=== PATIENT | female | born 1985 | race Caucasian/White ===

== ENCOUNTER 2017-03-04 19:55 | Emergency (ER) | payer MEDICARE ==
[2011-11-17 05:11] VITALS: BMI 52.1
== END 2017-03-04 20:57 | disposition home or self-care (01) ==
LOC: D.ER 19:55
DX: M25.562 Pain in left knee (principal); F17.200 Nicotine dependence, unspecified, uncomplicated

== ENCOUNTER 2017-06-26 21:50 | Emergency (ER) | payer MEDICARE | END 2017-06-27 00:08 | disposition home or self-care (01) | LOC: D.ER 21:50 | DX: R10.9 Unspecified abdominal pain (principal); F17.200 Nicotine dependence, unspecified, uncomplicated ==

== ENCOUNTER 2017-10-20 09:24 | Emergency (ER) | payer MEDICARE ==
[~2017-10-20] VITALS: Ht 165.1 cm; Wt 136.4 kg
[2017-10-20 09:27] VITALS: Ht 165.1 cm; Wt 136.4 kg
[2017-10-20] MEDS ORDERED: HYDROCODON-ACE1 EAC7 PO (10:00)
[2017-10-20 10:07] VITALS: BP 130/67
== END 2017-10-20 10:08 | disposition home or self-care (01) ==
LOC: D.ER 09:24
DX: S60.032A Contusion of left middle finger without damage to nail, initial encounter (principal); W23.0XXA Caught, crushed, jammed, or pinched between moving objects, initial encounter; Y93.89 Activity, other specified; Y92.019 Unspecified place in single-family (private) house as the place of occurrence of the external cause; F17.200 Nicotine dependence, unspecified, uncomplicated

== ENCOUNTER 2020-10-05 11:57 | Inpatient (IN) | payer MEDICARE, MEDICAID ==
[~2020-10-05] VITALS: Ht 165.1 cm; Wt 150.2 kg
[~2020-10-05 11:57] MED LIST: HYDROCODON-ACE1 EAC7 PO
[2020-10-05 12:39] LABS: BASOPHILS 0.7 % (0-2); EOSINOPHILS 1.4 % (0-7); HEMATOCRIT 47.7 % (36.0-48.0); HEMOGLOBIN 15.7 g/dL (12-16); LYMPHOCYTES 19.4 % (15-50); MCH 28.4 pg (26.0-34.0); MCHC 32.9 g/dL (31.0-37.0); MCV 86.1 fL (80.0-100.0); MONOCYTES 5.8 % (2-11); NEUTROPHILS 72.7 % (40-80); PLATELET COUNT 244 10x3/uL (130-400); RBC 5.53 10x6/uL (4.00-5.40); RDW 14.1 % (11.5-14.5); WBC 16.5 10x3/uL (4.8-10.8)
[2020-10-05 12:53] LABS: CALC OSMOLALITY 269 mosm/kg (275-300); CALCIUM 9.4 mg/dL (8.5-10.1); CARBON DIOXIDE 26.2 mmol/L (21.0-32.0); CHLORIDE - SERUM 102 mmol/L (98-107); CREATININE - SERUM 0.7 mg/dL (0.6-1.3); GLUCOSE 94 mg/dL (74-106); POTASSIUM - SERUM 4.1 mmol/L (3.5-5.1); SODIUM 136 mmol/L (136-145); UREA NITROGEN 8 mg/dL (7-18); eGFR NON AFRICAN AMERICAN > 90 mL/min (90-120)
[2020-10-05 13:01] LABS: BILIRUBIN NEGATIVE (NEGATIVE); KETONE NEGATIVE (NEGATIVE); NITRITE NEGATIVE (NEGATIVE); UROBILINOGEN NORMAL mg/dL (< 2)
[2020-10-05 13:02] LABS: ALBUMIN 3.4 g/dL (3.4-5.0); ALKALINE PHOSPHATASE 113 U/L (30-120); ALT (SGPT) 46 U/L (10-68); AMYLASE - SERUM 26 U/L (25-115); BILIRUBIN - TOTAL 0.24 mg/dL (0.2-1.3); LIPASE 51 U/L (73-393); PROTEIN - SERUM 8.1 g/dL (6.4-8.2); TROPONIN-I < 0.017 ng/mL (0.000-0.060)
[2020-10-05 13:02] LABS: BACTERIA FEW HPF (NONE SEEN); SQUAMOUS EPITHELIAL 0-5 HPF (0-4); WHITE CELLS - URINE NONE SEEN HPF (0-4)
[2020-10-05 13:38] VITALS: BP 138/86
[2020-10-05 15:24] LABS: PROTIME 13.4 SECONDS (11.6-15.0)
[2020-10-05 15:25] LABS: APTT 31.8 SECONDS (22.8-39.4); INR 1.13 (0.85-1.17)
--- NOTE | 2020-10-05 19:50 | NUR ---
BS 71. DR LEZAMA CONTACTED FOR ORDERS. / AMP D50 GIVEN.
--- NOTE | 2020-10-05 20:00 | NUR ---
TO OR VIA STRETCHER
--- NOTE | 2020-10-05 20:00 | NUR ---
DR LEZAMA CALLED. SURGERY CONSENTS OBTAINED FROM PATIENT
--- NOTE | 2020-10-05 22:40 | NUR ---
OPA OUT AT THIS TIME. PT IS A&OX4, VSS
[2020-10-05 23:00] VITALS: BP 113/92
[2020-10-05 23:15] VITALS: BP 114/89
[2020-10-05 23:30] VITALS: BP 114/89; BP 97/79; Ht 165.1 cm; Wt 150.2 kg
[2020-10-05 23:45] VITALS: BP 103/82
[2020-10-06] VITALS (9 sets, daily range): BP systolic 101–126; BP diastolic 74–91
[2020-10-06 05:35] LABS: BASOPHILS 0.3 % (0-2); EOSINOPHILS 0 % (0-7); HEMATOCRIT 46.2 % (36.0-48.0); HEMOGLOBIN 14.9 g/dL (12-16); LYMPHOCYTES 5.6 % (15-50); MCH 28.2 pg (26.0-34.0); MCHC 32.3 g/dL (31.0-37.0); MCV 87.2 fL (80.0-100.0); MEAN PLATELET VOLUME 9.2 fL (7.4-10.4); MONOCYTES 1.2 % (2-11); NEUTROPHILS 92.9 % (40-80); PLATELET COUNT 236 10x3/uL (130-400); RBC 5.29 10x6/uL (4.00-5.40); RDW 14.3 % (11.5-14.5); WBC 16.4 10x3/uL (4.8-10.8)
[2020-10-06 05:55] LABS: ALBUMIN 2.9 g/dL (3.4-5.0); ALKALINE PHOSPHATASE 90 U/L (30-120); ALT (SGPT) 42 U/L (10-68); CALC OSMOLALITY 274 mosm/kg (275-300); CALCIUM 8.5 mg/dL (8.5-10.1); CARBON DIOXIDE 26.1 mmol/L (21.0-32.0); CHLORIDE - SERUM 103 mmol/L (98-107); CREATININE - SERUM 0.7 mg/dL (0.6-1.3); MAGNESIUM - SERUM 1.9 mg/dL (1.8-2.4); PHOSPHOROUS 3.2 mg/dL (2.5-4.9); POTASSIUM - SERUM 4.7 mmol/L (3.5-5.1); PROTEIN - SERUM 7.6 g/dL (6.4-8.2); SODIUM 137 mmol/L (136-145); UREA NITROGEN 8 mg/dL (7-18); eGFR NON AFRICAN AMERICAN > 90 mL/min (90-120)
[2020-10-06 05:57] LABS: GLUCOSE 161 mg/dL (74-106)
--- NOTE | 2020-10-06 17:07 | NUR ---
0700 BEDSIDE SHIFT REPORT RECIEBVED AND CARE ASSUMED OF THE PATIENT.. SEE FLOW SHEET FOR SHIFT ASSESMENT FINDINGS.. 0900 ASSISTED OOB TO THE BSC.. VOIDED WITHOUT DIFFICULTY... ASSISTED TO THE CHAIR AT BEDSIDE.. .C/O PAIN MORPHINE GIVEN 1000 DR MARTIN IN TO SEE PATIENT NO NEW ORDERS 1200DR JAMAAL IN TO SEE PATIENT.. UPDATE IS GIVEN .. 1300 CONTINUE OOB IN CHAIR.. 1400 PT QUESTIONING WHERE THE DR IS .. EXPLAINED TO HER THAT THE DR IS IN HOUSE SEEING PATIENTS AND HE WILL BE MAKING ROUNDS PATIENT STATES SHE IS HUNGRY DR LEZAMA CALLED AND DIET OK RECIEVED KITCHEN CALLED AND WILL SEND UP SNACK 1445 [place]UR[employer] SANDWICH SERVED TO PATIENT.. PATIENT STATES THAT SHE WANTS TO GO HOME AND IF DOES NOT MAKJE ROUNDS BY 4 SHE IS LEAVING AMA 1500 DR LEZAMA INFORMED OF PATIENTS WISHES.. STATED HE WILL BE HERE SOON POSSIBL 1550 PT STANDING AT DOORWAY TOTALLY DRESSED IN STREET CLOTHES STATING SHE IS LEAVING AMA... FORM OBTAINED PT SIGNED AND PIV REMOVED PT AMBULATED SELF OUT UNIT DOORS.. HOUSE SUPER CALLED AND INFORMED... DR LEZAMA NOTIFIED
--- NOTE | 2020-10-06 19:06 | CN ---
PATIENT NAME:MICHAEL TRENT MEDICAL RECORD: [id number] : 85 LOCATION:[id number] ADMIT DATE: 10/05/20 ACCOUNT: [id number] CONSULTING PHYSICIAN: BEE LEZAMA MD REFERRING PHYSICIAN: TEODORO MOURA MD DATE OF CONSULTATION: 10/05/2020 DATE OF ADMISSION: 10/05/20. HISTORY OF PRESENT ILLNESS: The patient presented to the Emergency Room and had CT evidence of acute appendicitis. She has been having right lower quadrant pain. She is a poor historian. REVIEW OF SYSTEMS: Negative for myocardial infarction. Positive for abdominal pain. Positive for nausea. Review of systems is negative other than as is described above. PAST MEDICAL AND SURGICAL HISTORY: Asthma, obstructive sleep apnea, and schizophrenia. LABORATORY DATA: Reviewed. PHYSICAL EXAMINATION: GENERAL: She does appear acutely ill. Also appears chronically ill. VITAL SIGNS: Reviewed. EARS: External ears appear normal. EYES: Extraocular movements are intact. NECK: Trachea is midline. CHEST: No intercostal retractions. PULMONARY: Nonlabored. No stridor. ABDOMEN: Right lower quadrant tenderness with peritonitis to percussion. IMPRESSION: Acute appendicitis with localized peritonitis. I personally reviewed the CT images. I personally reviewed the CT report. PLAN: Laparoscopic appendectomy. The risks, possible complications, and alternatives of the procedure were explained to the patient. She elects to proceed. TRANSINT:[id number] Voice Confirmation ID: [id number] DOCUMENT ID: [id number] BEE LEZAMA MD at 1906 CC: [id number] DICTATION DATE: 10/05/202108 FORESTRY FACULTY MEMBER: 10/05/20 2354 DIS IN 10/06/20 [facility] [address] [place] [address]
== END 2020-10-06 15:54 | disposition left against medical advice (07) | DRG 343 ==
LOC: D.ER 11:57 → OBSVTIME 19:15 → D.MS 19:15 → D.ICU 22:52
PROVIDERS: Emergency Medicine; Surgery; ADMIT Emergency Medicine; ATTEND Emergency Medicine
PROC: 0DTJ4ZZ Resection of Appendix, Percutaneous Endoscopic Approach (ICD-10-PCS; principal; 2020-10-05 12:45)
DX: K35.30 Acute appendicitis with localized peritonitis, without perforation or gangrene (principal); E11.9 Type 2 diabetes mellitus without complications; J45.909 Unspecified asthma, uncomplicated; F32.9 Major depressive disorder, single episode, unspecified; D72.829 Elevated white blood cell count, unspecified; R91.1 Solitary pulmonary nodule; F41.9 Anxiety disorder, unspecified

== ENCOUNTER 2020-10-16 08:41 | Emergency (ER) | payer MEDICARE, MEDICAID ==
[~2020-10-16] VITALS: Ht 165.1 cm; Wt 148.2 kg
[2020-10-16 08:45] VITALS: Ht 165.1 cm; Wt 148.2 kg
[2020-10-16 09:11] LABS: BASOPHILS 0.9 % (0-2); EOSINOPHILS 2.2 % (0-7); HEMATOCRIT 45.7 % (36.0-48.0); HEMOGLOBIN 14.7 g/dL (12-16); LYMPHOCYTES 24.9 % (15-50); MCH 28.1 pg (26.0-34.0); MCHC 32.1 g/dL (31.0-37.0); MCV 87.6 fL (80.0-100.0); MEAN PLATELET VOLUME 8.6 fL (7.4-10.4); MONOCYTES 8.8 % (2-11); NEUTROPHILS 63.2 % (40-80); PLATELET COUNT 233 10x3/uL (130-400); RBC 5.22 10x6/uL (4.00-5.40); RDW 14.6 % (11.5-14.5); WBC 11.1 10x3/uL (4.8-10.8)
[2020-10-16 09:24] LABS: CALC OSMOLALITY 275 mosm/kg (275-300); CALCIUM 8.3 mg/dL (8.5-10.1); CARBON DIOXIDE 32.4 mmol/L (21.0-32.0); CHLORIDE - SERUM 102 mmol/L (98-107); CREATININE - SERUM 0.9 mg/dL (0.6-1.3); GLUCOSE 116 mg/dL (74-106); POTASSIUM - SERUM 4.1 mmol/L (3.5-5.1); SODIUM 138 mmol/L (136-145); UREA NITROGEN 10 mg/dL (7-18); eGFR NON AFRICAN AMERICAN 75 mL/min (90-120)
[2020-10-16 09:30] LABS: ALBUMIN 2.9 g/dL (3.4-5.0); ALKALINE PHOSPHATASE 90 U/L (30-120); ALT (SGPT) 34 U/L (10-68); BILIRUBIN - TOTAL 0.24 mg/dL (0.2-1.3); PROTEIN - SERUM 7.2 g/dL (6.4-8.2)
[2020-10-16 12:00] VITALS: BP 113/73
== END 2020-10-16 12:05 | disposition home or self-care (01) ==
LOC: D.ER 08:41
PROVIDERS: Family Medicine
DX: R10.9 Unspecified abdominal pain (principal); R53.1 Weakness; E66.01 Morbid (severe) obesity due to excess calories; E11.9 Type 2 diabetes mellitus without complications; J45.909 Unspecified asthma, uncomplicated; Z72.0 Tobacco use